=== PATIENT | male | born 1935 | race Caucasian/White ===

== ENCOUNTER 2020-10-16 12:16 | Outpatient (CLI) | payer MEDICARE ==
[2020-10-16] MEDS ORDERED: REGADENOSON 0.4 MG/5 ML SYRINGE ONE (12:30)
== END 2020-10-16 23:59 | disposition home or self-care (01) ==
LOC: CFH 12:16 → EDSTATUS 12:30 → CFH 23:59
PROVIDERS: ATTEND Internal Medicine Cardiovascular Disease
DX: Z01.810 Encounter for preprocedural cardiovascular examination (principal); I48.91 Unspecified atrial fibrillation; I51.7 Cardiomegaly
CPT/HCPCS: 78452; 93017; A9502; J2785